=== PATIENT | female | born 1995 | race African-American/Black ===

== ENCOUNTER 2019-02-16 02:06 | Emergency (ER) | payer OTHER ==
[~2019-02-16] VITALS: Ht 162.6 cm; Wt 52.3 kg
[2019-02-16] MEDS ORDERED: LIDOCAINE VISCOUS 2% SOLN 15ML UDC SS ONE (03:30)
[2019-02-16 04:42] LABS: BASO % 0.3 % (0.0-1.0); EOS % 0.3 % (0.0-3.0); HEMOGLOBIN 13.1 g/dl (12.0-15.5); LYMPH # 1.9 10^3/uL (1.5-6.5); LYMPH % 19.7 % (24.0-44.0); MEAN CORPUSCULAR HEMOGLOBIN 30.3 pg (27.0-33.0); MEAN CORPUSCULAR HGB CONC 34.5 g/dl (32.0-36.5); MONO # 0.7 10^3/uL (0.0-0.8); MONO % 7.7 % (0.0-5.0); NEUTROPHILS % 71.9 % (36.0-66.0); PLATELET COUNT, AUTOMATED 344 10^3/uL (150-450); RED BLOOD COUNT 4.32 10^6/uL (4.00-5.40); WHITE BLOOD COUNT 9.7 10^3/uL (4.0-10.0)
[2019-02-16] MEDS ORDERED: ISOVUE-370 76% 100ML VIAL (Q9967) As Ordered ONE (04:48)
[2019-02-16 05:08] LABS: C REACTIVE PROTEIN QUANTITATIV 1.13 MG/DL (0.00-0.30); HCG, SERUM QUANTITATIVE < 1.0 MIU/ML
--- NOTE | 2019-02-16 05:40 | REPVR ---
EXAM: CT Neck With Contrast EXAM DATE/TIME: 02/16/2019 4:59 AM CLINICAL HISTORY: 23 years old, female; Throat pain; Prior surgery; Surgery type: Fillings put in left upper side teeth on . Recent wisdom teeth procedure; Additional info: Left sided throat pain/swelling TECHNIQUE: Imaging protocol: Axial computed tomography images of the neck with intravenous contrast. Coronal and sagittal reformatted images were created and reviewed. Radiation optimization: All CT scans at this facility use at least one of these dose optimization techniques: automated exposure control; mA and/or kV adjustment per patient size (includes targeted exams where dose is matched to clinical indication); or iterative reconstruction. Contrast material: ISOVUE 370; Contrast volume: 100 ml; Contrast route: IV; COMPARISON: No relevant prior studies available. FINDINGS: Orbits: The globes and orbits are intact and normal in appearance. Sinuses: The sinuses are clear. The ostiomeatal units are patent. The infundibuli are bordered laterally by orbit on both sides. Nasopharynx: Normal. Oropharynx: Normal. No significant tonsillar enlargement. No tonsillar abscess. Hypopharynx: Normal. Larynx: Normal. Normal epiglottis. Retropharyngeal space: Normal. No retropharyngeal fluid collection. Submandibular/Parotid glands: Normal. Glands are normal in size. Thyroid: Normal. No enlarged or calcified nodules. Lymph nodes: There is bilateral level IIa cervical lymphadenopathy. Trachea: Normal. Lungs: The imaged lung apices are clear. Vasculature: The vertebral arteries, common carotid arteries, internal carotid arteries, and external carotid arteries are patent. There is no dissection. The internal jugular veins are patent. Dental: All of the wisdom teeth and the left upper first molar are absent. Several dental fillings are noted. There is periapical sclerosis involving the left lower first molar, which may represent condensing osteitis. Mastoid air cells: Normal as visualized. No mastoid effusion. Bones/joints: The imaged bony structures are intact. There is no suspicious osteolytic or osteoblastic lesion. Soft tissues: Unremarkable. No soft tissue fluid collection. IMPRESSION: 1. 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 2. Bilateral level IIa cervical lymphadenopathy. 3. No abscess in the neck. Electronically signed by: Matt Murry On 02/16/2019 05:39:45 AM
[2019-02-16] MEDS ORDERED: IBUP80TA PO (06:42)
[2019-02-16] MEDS ORDERED: KETOROLAC 30 MG/ML VIAL (J1885) IV ONE (06:45)
[2019-02-16] MEDS ORDERED: OXYCODONE/APAP 5MG/325MG(BULK FOR ED) 1 TABLET PO ONE (06:45)
[2019-02-16 07:04] VITALS: BP 118/65
--- NOTE | 2019-02-19 16:43 | ED PDOC ---
Post-Departure Follow-Up ft [facility] faxed formal report of ct neck for fu Georgie Jason MD February 19, 2019 16:43
== END 2019-02-16 07:06 | disposition home or self-care (01) ==
LOC: M ED 02:06
DX: R59.9 Enlarged lymph nodes, unspecified (principal); K04.7 Periapical abscess without sinus
CPT/HCPCS: 70491; 80047; 84702; 85025; 86140; 87880; 96374; 99284; J1885; Q9967